=== PATIENT | male | born 1945 | race Caucasian/White ===

== ENCOUNTER 2018-11-18 08:34 | Day surgery (SDC) | payer MEDICARE ==
--- NOTE | 2018-11-17 14:51 | HP ---
HISTORY OF PRESENT ILLNESS: Mr. Nayak is a 73-year-old man, known to us for a very distant lumbar decompression, who presents for evaluation of progressive myelopathy, for which he actually has also been evaluated for back at that initial encounter. He is using a walker and has a very unsteady gait. He also has hand atrophy and is losing function slowly in terms of coding consultant strength and fine motor movements. He has a new MRI from [facility] revealing T2 signal change in his spinal cord at the C6-C7 level. He is here to discuss possible surgical intervention. PAST MEDICAL HISTORY: Significant for hypercholesterolemia, hypertension, coronary arterial disease, chronic pain syndrome. PAST SURGICAL HISTORY: Tonsillectomy, appendectomy, angioplasty. ALLERGIES: NO KNOWN DRUG ALLERGIES. CURRENT MEDICATIONS: 1. Losartan. 2. Hydrochlorothiazide. 3. Simvastatin. 4. Aspirin. PHYSICAL EXAMINATION: The patient has obviously disturbed gait, uses a walker for ambulation. When walking without it, he is extraordinarily unsteady and nearly falls. Upper extremity motor exam reveals decreased coding consultant strength and hand atrophy. ASSESSMENT: Cervical myelopathy. PLAN: Dr. Noe met with the patient, reviewed imaging, and advocated for posterior cervical decompression at C6-C7. He explained to the patient the risks, benefits, and alternatives of the procedure. The patient expressed understanding and elected to move forward with surgery as discussed. I do believe the patient is mentally competent and capable of making medical decisions for himself. We will move forward with surgery as planned. Job ID: [id number]
[2018-11-17 14:59] VITALS: BMI 26.4
[2018-11-18] MEDS ORDERED: CEFAZOLIN 2 GM/50 ML BAG ONE ×2 (09:31→15:39)
[2018-11-18 09:46] LABS: Anion Gap 11 mmol/L (10-20); BUN (Urea Nitrogen) 12 mg/dL (8.4-25.7); Calc. Creatinine Clearance 79 mL/min (70-130); Calcium 9.6 mg/dL (7.8-10.44); Carbon Dioxide 26 mmol/L (23-31); Chloride 107 mmol/L (98-107); Estimated GFR-MDRD 75; Glucose 95 mg/dL (83-110); Potassium 4.3 mmol/L (3.5-5.1); Sodium 140 mmol/L (136-145)
[2018-11-18] MEDS ORDERED: Famotidine/PF 20 mg/2ml Vial ONE (11:44)
[2018-11-18] MEDS ORDERED: Bupivacaine HCl 0.5%/Epinephrine 1:200,000/PF 30 ml Vial ONE (12:09)
[2018-11-18] MEDS ORDERED: Fentanyl 100 MCG/2 ML VIAL ONE (12:13)
[2018-11-18] MEDS ORDERED: ePHEDrine 50 MG/ML VIAL ONE (13:46)
[2018-11-18] MEDS ORDERED: Lidocaine 1% PF 5 ML VIAL ONE (13:46)
[2018-11-18] MEDS ORDERED: Ondansetron PF 4 MG/2 ML Vial ONE (13:46)
[2018-11-18] MEDS ORDERED: Rocuronium Bromide 10 MG/ML (10ML VIAL) ONE (13:46)
[2018-11-18] MEDS ORDERED: Glycopyrrolate 0.2 MG/ML 5 ML SYRINGE ONE (13:46)
[2018-11-18] MEDS ORDERED: Dexamethasone 20 MG/5 ML VIAL ONE (13:46)
[2018-11-18] MEDS ORDERED: PROPOFOL 200 MG/20 ML VIAL ONE (13:46)
[2018-11-18] MEDS ORDERED: PHENYLEPHRINE-NS 100 MCG/ML 10 ML SYRINGE ONE (13:46)
[2018-11-18] MEDS ORDERED: Ketorolac Tromethamine 30 MG/ML VIAL ONE (13:46)
--- NOTE | 2018-11-18 16:09 | OP ---
DATE OF PROCEDURE: 11/18/2018 MARINE FIREFIGHTER: Calvin Blunt PA-C. INDICATION: Prevent neurologic decline. DIAGNOSIS: Cervical spondylitic myelopathy. PROCEDURE PERFORMED: Posterior cervical decompression, C6-C7. ANESTHESIA: General. DESCRIPTION OF PROCEDURE: The patient was brought into the operating room and placed under general anesthesia. He was flipped from supine to prone position on operating room table. A linear incision was planned over the C6-C7 area. After prepping and draping and after preoperative pause, the incision was created. The soft tissues were swept away from midline. Self-retaining retractors were placed. After confirming the appropriate level, rongeur as well as 1 and 2 mm Kerrisons were used to perform a laminectomy at the C6-C7 segment. After decompressing the segment, the wound was irrigated. Hemostasis was maintained throughout. The wound was then closed in anatomic layers and a pressure dressing was applied. There were no known procedural complications. Job ID: [id number]
== END 2018-11-18 16:20 | disposition home or self-care (01) ==
LOC: SDC 08:34
PROVIDERS: ATTEND Neurological Surgery
PROC: 01N10ZZ Release Cervical Nerve, Open Approach (ICD-10-PCS; principal; 2018-11-18)
DX: M47.12 Other spondylosis with myelopathy, cervical region (principal); I10 Essential (primary) hypertension; I25.10 Atherosclerotic heart disease of native coronary artery without angina pectoris; E78.00 Pure hypercholesterolemia, unspecified; G89.4 Chronic pain syndrome; Z90.89 Acquired absence of other organs; Z90.49 Acquired absence of other specified parts of digestive tract; Z95.5 Presence of coronary angioplasty implant and graft; Z79.82 Long term (current) use of aspirin; Z79.899 Other long term (current) drug therapy
CPT/HCPCS: 36415; 76000; 80048; 93005; 93010; J0131; J0670; J3010; S0028